=== PATIENT | male | born 1940 | race Two or more races ===

== ENCOUNTER → 2018-03-11 10:24 | Outpatient (CLI) | payer MEDICARE, SELFPAY ==
[2018-03-11 10:49] LABS: Hematocrit 27.3 % (40-54); Hemoglobin 8.6 g/dl (13.0-16.5); Mean Corp Hgb Conc 31.5 g/gl (32-36); Mean Corpuscular Hgb 28.2 pg (27.0-32.0); Mean Corpuscular Volume 89.5 fL (80-94); Mean Platelet Vol. 10.9 fl (6.2-12.0); Platelet Count 240 K/mm3 (150-450); RBC Distribution Width CV 15.5 % (11.6-14.6); RBC Distribution Width SD 49.1 fl (35.1-43.9); Red Blood Count 3.05 M/mm3 (4.6-6.2); White Blood Count 7.2 K/mm3 (4.4-11.0)
[2018-03-11 10:50] LABS: Scan Indicated on CBC? Y/N NO
[2018-03-11 10:51] LABS: Prothrombin Time (Protime)PT. 22.6 SECONDS (11.7-14.9)
[2018-03-11 11:10] LABS: Anion Gap 9 (5-15); BUN 16 mg/dL (7-18); BUN/Creat Ratio 11.4 RATIO (10-20); Calcium,Total 7.9 mg/dL (8.5-10.1); Chloride 113 mmol/L (98-107); EST Glomerular Filtration Rate 52 mL/min (>60); Est Glom Filt Rate - Afr Amer 63 mL/min (>60); Glucose 74 mg/dL (74-106); Magnesium 1.8 mg/dL (1.6-2.6); Phosphorus 2.4 mg/dL (2.5-4.9); Potassium 4.1 mmol/L (3.5-5.1); Sodium Level 141 mmol/L (136-145)
== END ==
DX: D64.9 Anemia, unspecified (principal)
CPT/HCPCS: 80048; 83735; 84100; 85027; 85610